=== PATIENT | male | born 1990 | race Two or more races ===

== ENCOUNTER 2017-05-08 18:29 | Emergency (ER) | payer MEDICAID, OTHER ==
[~2017-05-08] VITALS: Ht 185.4 cm; Wt 92.5 kg
[2017-05-08 19:04] VITALS: BP 140/98
== END 2017-05-08 19:38 | disposition home or self-care (01) ==
LOC: ER 18:32
DX: S63.502A Unspecified sprain of left wrist, initial encounter (principal); J45.909 Unspecified asthma, uncomplicated; F17.210 Nicotine dependence, cigarettes, uncomplicated; V49.3XXA Car occupant (driver) (passenger) injured in unspecified nontraffic accident, initial encounter; Y93.89 Activity, other specified; Y92.89 Other specified places as the place of occurrence of the external cause; Y99.8 Other external cause status
CPT/HCPCS: 73110

== ENCOUNTER 2018-01-28 19:41 | Emergency (ER) | payer MEDICAID ==
[~2018-01-28] VITALS: Ht 185.4 cm; Wt 90.7 kg
[2018-01-29 04:44] VITALS: BP 127/71
== END 2018-01-29 05:29 | disposition home or self-care (01) ==
LOC: ER 19:41
DX: S20.211A Contusion of right front wall of thorax, initial encounter (principal); F17.210 Nicotine dependence, cigarettes, uncomplicated; J45.909 Unspecified asthma, uncomplicated; W22.8XXA Striking against or struck by other objects, initial encounter; Y93.89 Activity, other specified; Y99.8 Other external cause status; Y92.89 Other specified places as the place of occurrence of the external cause
CPT/HCPCS: 71250